=== PATIENT | female | born 1960 | race Two or more races ===

== ENCOUNTER 2017-12-03 08:13 | Outpatient (CLI) | payer OTHER | END 2017-12-03 08:24 | disposition home or self-care (01) | LOC: SONOGRAMA 08:13 | DX: E04.2 Nontoxic multinodular goiter (principal) ==

== ENCOUNTER 2021-10-23 07:56 | Outpatient (CLI) | payer OTHER | END 2021-10-23 07:58 | disposition home or self-care (01) | LOC: SONOGRAMA 07:56 | PROVIDERS: ATTEND Pathology Anatomic Pathology & Clinical Pathology | DX: E04.2 Nontoxic multinodular goiter (principal) ==